=== PATIENT | female | born 1980 | race Caucasian/White ===

== ENCOUNTER 2017-03-01 09:55 | Outpatient (CLI) ==
[2015-09-13 10:05] VITALS: BMI 27.2
[2017-03-01 10:15] LABS: BASOPHILS # (AUTO) 0.1 K/uL (0-0.2); BASOPHILS % (AUTO) 0.7 % (0.0-3.0); EOSINOPHILS # (AUTO) 0.2 K/ul (0.0-0.7); EOSINOPHILS % (AUTO) 2.4 % (0.0-7.0); HEMATOCRIT 42.6 % (37.0-47.0); IMMATURE GRANULOCYTE % (AUTO) 0.4 % (0.0-5.0); LYMPHOCYTES # (AUTO) 2.1 K/uL (0.60-3.4); LYMPHOCYTES % (AUTO) 31.9 (10.0-50.0); MEAN CORPUSCULAR HEMOGLOBIN 29.2 pg (27.0-31.0); MEAN CORPUSCULAR HGB CONC 32.9 (31.8-35.4); MEAN CORPUSCULAR VOLUME 88.8 fl (81.0-99.0); MONOCYTES # (AUTO) 0.4 K/uL (0.4-2.0); NEUTROPHILS # (AUTO) 3.9 K/ul (2.0-6.9); NEUTROPHILS % (AUTO) 58.6; PLATELET COUNT 206 10^3/uL (140-440); WHITE BLOOD COUNT 6.68 K/ul (4.6-10.2)
[2017-03-01 10:33] LABS: ALBUMIN 3.7 g/dL (3.4-5.0); ALBUMIN/GLOBULIN RATIO 1.23; ANION GAP 10.9; BILIRUBIN,TOTAL 0.27 mg/dL (0.00-1.20); BUN/CREATININE RATIO 17.64; CALCIUM 9.2 mg/dL (8.2-10.2); CREATININE 0.85 mg/dL (0.60-1.30); POTASSIUM 3.9 mmol/L (3.5-5.10); TOTAL PROTEIN 6.7 g/dL (6.4-8.2)
== END 2017-03-01 09:56 | disposition home or self-care (01) ==
LOC: LAB 09:55
PROVIDERS: ATTEND Nurse Practitioner Family
DX: R73.09 Other abnormal glucose (principal); J01.90 Acute sinusitis, unspecified
CPT/HCPCS: 36415; 80053; 83036; 85025

== ENCOUNTER 2017-03-15 09:22 | Outpatient (CLI) ==
[2015-09-13 10:05] VITALS: BMI 27.2
--- NOTE | 2017-03-15 10:36 | CT ---
EXAM: CT chest with contrast HISTORY: Lung nodules COMPARISON: 02/13/2015 TECHNIQUE: CT chest performed with intravenous contrast. Coronal and sagittal reformatted images o btained. FINDINGS: Thyroid and thoracic inlet appear normal. Heart normal in size. No pericardial effusion . Aorta normal in caliber. Esophagus appears normal. No mediastinal, hilar, or axillary lymphaden opathy. Patient status post cholecystectomy. There is haziness of the upper abdominal mesentery wit h increased number of normal and top normal sized mesenteric lymph nodes, suggesting mild mesenteric adenitis or colitis. No acute abnormalities of the bones. Central airway patent. No airspace con solidation. No pleural effusion. No pneumothorax. Several stable pulmonary nodules. Stable calci fied right lung nodule measuring 0.8 cm image 31. Stable 3 mm pulmonary nodule right lung image 17. Stable 3 mm pulmonary nodule right lung image 21. Stable 4 mm pulmonary nodule right lung image 2 2. Stable 3 mm pulmonary nodule right lung image 13. Stable 3 mm pulmonary nodule left lung imag e 22. No new pulmonary nodules identified. IMPRESSION: 1. Several stable pulmonary nodules, demonstrating greater than 2-year stability, consistent with b enign etiology. 2. No acute cardiopulmonary process. 3. Findings suggesting mild mesenteric adenitis or panniculitis upper abdomen.
== END 2017-03-15 09:23 | disposition home or self-care (01) ==
LOC: RAD 09:22
PROVIDERS: ATTEND Nurse Practitioner Family
DX: R91.8 Other nonspecific abnormal finding of lung field (principal); Z72.0 Tobacco use

== ENCOUNTER 2018-02-04 12:54 | Emergency (ER) ==
[2018-02-04 12:59] VITALS: BP 97/60; TEMP 98.2; BMI 29.2
--- NOTE | 2018-02-04 13:06 | ED.PDOC ---
General ED Provider: Dr. SUMMER RAMIREZ Chief Complaint: Earache Stated Complaint: Presents for evaluation of earache, sinus congestion, headache and nasal congestion with sneezing. States woke up this am with slight headache/congestion-sneezing. States her throat itches-Denies fever-no cough, + has frontal head pain. States she works at a local [employer] and 2 coworkers had dx flu and were allowed to work Time Seen by Physician: 13:15 Mode of Arrival: Walk-In Information Source: Patient Primary Care Provider: [facility] Nursing and Triage Documentation Reviewed and Agree: Yes Reviewed sepsis parameters & appropriate labs ordered?: Yes System Inflammatory Response Syndrome: Not Applicable Sepsis Protocol: For patient's 13 years and over: Temp is 96.8 and below OR 101 and greater Pulse >90 BPM Resp >20/minute Acutely Altered Mental Status Are patient's symptoms suggestive of a new infection, such as: -Pneumonia -Skin, Soft Tissue -Endocarditis -UTI -Bone, Joint Infection -Implantable Device -Acute Abdominal Infection -Wound Infection -Meningitis -Blood Stream Catheter Infection -Unknown System Inflammatory Response Syndrome: Not Applicable EENT Complaint Exam - Ear Complaint/Exam Symptoms Are: Still present Timing: Constant Initial Severity: Moderate Current Severity: Moderate Character: Reports: Dull pain, Aching pain. Denies: Dizzy, Throbbing pain Aggravating: Reports: None. Denies: Foreign body Alleviating: Reports: None Associated Signs and Symptoms: Reports: Sore throat, URI symptoms Ear Surgical History: None Vesicles to External Pinna: No Vesicles to Tragus: No TMJ Tenderness: None Mastoid Tenderness: None Tragal Tenderness: None External Canal: Normal Material in Canal: Absent: Cerumen, Discharge, Foreign body Tympanic Membrane: Erythema (Lt TM), Bulging Differential Diagnoses: Otitis Media, Other (Influenza) Review of Systems - Review Of Systems Constitutional: Reports: No symptoms Eyes: Reports: No symptoms Ears, Nose, Mouth, Throat: Reports: Throat pain (scratching) Respiratory: Reports: Cough (dry) Cardiac: Reports: No symptoms GI: Reports: No symptoms : Reports: No symptoms Musculoskeletal: Reports: No symptoms Skin: Reports: No symptoms Neurological: Reports: No symptoms Endocrine: Reports: No symptoms Hematologic/Lymphatic: Reports: No symptoms All Other Systems: Reviewed and Negative Past Medical History - Past Medical History Previously Healthy: Yes Endocrine: Reports: None Cardiovascular: Reports: None Respiratory: Reports: None, Other (pulmonary nodule still actively smokes) Hematological: Reports: None Gastrointestinal: Reports: GERD Genitourinary: Reports: None Neuro/Psych: Reports: Anxiety Musculoskeletal: Reports: None Cancer: Reports: None Last Menstrual Period: 3 days ago - Surgical History General Surgical History: Reports: Tubal ligation, Cholecystectomy - Family History Family History: Reports: Unknown - Social History Smoking Status: Current some day smoker Hx Substance Use: No Alcohol Screening: None Physical Exam - Physical Exam Appearance: Well-appearing Ill-appearing: Mild Pain Distress: None Eyes: ADDISON, EOMI, Conjunctiva clear ENT: Ears normal, Nose normal, Oropharynx normal Neck: Supple (Postive, Lymphadenopathy) Respiratory: Airway patent, Breath sounds clear, Breath sounds equal Cardiovascular: RRR, Pulses normal, No rub, No murmur GI/: Soft, Nontender, No masses Musculoskeletal: Normal strength, ROM intact, No edema Skin: Warm, Dry, Normal color (No rash, turgor adequate) Neurological: Sensation intact, Motor intact, Cranial nerves intact, Alert, Oriented Psychiatric: Affect appropriate, Mood appropriate Critical Care Note - Critical Care Note Total Time (mins): 0 Course - Course Vital Signs: Temp Pulse Resp BP Pulse Ox 02/04/18 12:55 98.2 F 75 20 97/60 94 L Departure - Departure Time of Disposition: 14:00 Disposition: HOME SELF-CARE Discharge Problem: Otalgia of left ear, Influenza B Instructions: Influenza (ED), Earache (ED) Condition: Good Pt referred to PMD for follow-up: Yes (2-3 days) IPMP verified?: No Additional Instructions: Remain off work for minimum 48-72 hours until followed up by PCP/ RE EVALUATED AND RELEASED . PATIENT INFLUENZA INSTRUCTIONS The Flu is contagious for one week, and you can infect other people with the flu one day before your symptoms develop, according to the Center for Disease Control and Prevention (CDC). Kids can stay contagious for even longer. To be safe, students, educators and employed adults should stay away from school and work for 24 hours after a fever has subsided, the CDC suggests. Another rule of thumb: You are technically contagious for as long as you have symptoms. From Coughing, Flu germs can spread to others when left to linger on door handles, printer buttons, or other shared tools and furniture. The CDC recommends that workers who have a fever and respiratory symptoms stay at home until 24 hours after their fever ends (100 degrees Fahrenheit [37.8 degrees Celsius] or lower), without the use of medication. Not everyone who has the flu will have a fever. Other symptoms could include a runny nose, body aches , headache, tiredness, diarrhea, or vomiting. Follow up with your primary care physician or midlevel provider if you fail to improve or return to ER if condition worsens (uncontrolled nausea, vomiting, temperature elevation not responding to antipyretics-Tylenol/ibuprofen. Hand Hygiene Wash hands after blowing your nose, coughing, sneezing, or coming into contact with mucus or contaminated objects and surfaces. Apply soap and water: rub soapy hands together for at least 20 seconds, rinse hands with water, and dry completely. Alcohol-based hand rubs: If soap and water are not available, use of an alcohol- based hand rub is a helpful interim measure until hand washing is possible. When using an alcohol-based hand rub, apply liquid to palm of hand, cover all surfaces of the hands with the liquid, and rub hands together until dry. Cough Etiquette Cover coughs and sneezes with a tissue, or cough and sneeze into your upper sleeve(s). Dispose of used tissues in "no-touch" wastebaskets. Prescriptions: Oseltamivir Phosphate [Tamiflu] 75 mg PO Q12HR #10 capsule Promethazine HCl [Phenergan Tab] 25 mg PO Q6H PRN #10 tablet PRN Reason: Nause or vomiting Allergies/Adverse Reactions: Allergies hydrocodone bitartrate [From Lortab] Adverse Reaction (Mild, Verified 02/04/18 13:00) Abdominal Pain states, "hurts stomach" Home Medications: Ambulatory Orders Oseltamivir Phosphate [Tamiflu] 75 mg PO Q12HR #10 capsule 02/04/18 Promethazine HCl [Phenergan Tab] 25 mg PO Q6H PRN #10 tablet 02/04/18
== END 2018-02-04 14:51 | disposition home or self-care (01) ==
LOC: ED 12:54
DX: J10.1 Influenza due to other identified influenza virus with other respiratory manifestations (principal); H92.02 Otalgia, left ear; F17.210 Nicotine dependence, cigarettes, uncomplicated
CPT/HCPCS: 87502; 87651; 99283

== ENCOUNTER 2019-01-17 21:04 | Emergency (ER) ==
[2019-01-17 21:16] VITALS: BP 118/73; TEMP 98.8; BMI 30.9
--- NOTE | 2019-01-17 21:43 | ED.PDOC ---
General ED Provider: Dr. CELINA ROBERTS Chief Complaint: Neck Pain Non-Injury Stated Complaint: Patient is a 38 year old female who comes to the ER with c/o pain to neck, sore throat, Bilatearal ears headache and runny nose. Time Seen by Physician: 21:43 Mode of Arrival: Walk-In Information Source: Patient Exam Limitations: No limitations Nursing and Triage Documentation Reviewed and Agree: Yes Does patient meet sepsis criteria?: No System Inflammatory Response Syndrome: Not Applicable Sepsis Protocol: For patient's 13 years and over: Temp is 96.8 and below OR 101 and greater Pulse >90 BPM Resp >20/minute Acutely Altered Mental Status Are patient's symptoms suggestive of a new infection, such as: -Pneumonia -Skin, Soft Tissue -Endocarditis -UTI -Bone, Joint Infection -Implantable Device -Acute Abdominal Infection -Wound Infection -Meningitis -Blood Stream Catheter Infection -Unknown Review of Systems - Review Of Systems Constitutional: Reports: No symptoms Eyes: Reports: No symptoms Ears, Nose, Mouth, Throat: Reports: Throat pain Respiratory: Reports: No symptoms Cardiac: Reports: No symptoms GI: Reports: No symptoms : Reports: No symptoms Musculoskeletal: Reports: Neck pain Skin: Reports: No symptoms Neurological: Reports: Anxiety Endocrine: Reports: No symptoms Hematologic/Lymphatic: Reports: No symptoms All Other Systems: Reviewed and Negative Past Medical History - Past Medical History Previously Healthy: Yes Endocrine: Reports: None Cardiovascular: Reports: None Respiratory: Reports: Other (pulmonary nodule still actively smokes) Hematological: Reports: None Gastrointestinal: Reports: GERD Genitourinary: Reports: None Neuro/Psych: Reports: Anxiety Musculoskeletal: Reports: None Cancer: Reports: None Last Menstrual Period: LAST WEEK - Surgical History General Surgical History: Reports: Tubal ligation, Cholecystectomy - Family History Family History: Reports: Unknown - Social History Smoking Status: Current every day smoker, Heavy tobacco smoker Hx Substance Use: No Alcohol Screening: None - Immunizations Tetanus Shot up to Date: Yes Physical Exam - Physical Exam Appearance: Well-appearing Ill-appearing: None Pain Distress: Mild Eyes: ADDISON, EOMI, Conjunctiva clear ENT: Ears normal, Nose normal, Oropharynx normal, Erythema Neck: Supple (with some superficial lymph nodes palpable.) Respiratory: Airway patent, Breath sounds clear, Breath sounds equal, Respirations nonlabored Cardiovascular: RRR, Pulses normal, No rub, No murmur Musculoskeletal: Normal strength, ROM intact, No edema, No calf tenderness Skin: Warm, Dry, Normal color Neurological: Alert Psychiatric: Anxious Re-Evaluation - Re-Evaluation Time of Re-Evaluation: 22:20 Status: Improved Critical Care Note - Critical Care Note Total Time (mins): 0 Course - Course Orders, Labs, Meds: Orders Category Date Time Status FLU A/B MOLECULAR Stat LAB 01/17/19 21:30 Ordered MOLECULAR GROUP A STREP Stat LAB 01/17/19 21:30 Ordered Vital Signs: Temp Pulse Resp BP Pulse Ox 01/17/19 21:04 98.8 F 77 18 118/73 97 Departure - Departure Time of Disposition: 22:25 Disposition: HOME SELF-CARE Discharge Problem: Viral pharyngitis, Neck pain Instructions: Pharyngitis (ED), Neck Pain (ED) Condition: Stable Pt referred to PMD for follow-up: Yes IPMP verified?: No Additional Instructions: Follow up with PCP in 1-3 days Take medications as prescribed Prescriptions: Ibuprofen [Motrin] 600 mg PO Q6H PRN #20 tablet PRN Reason: Analgesia Allergies/Adverse Reactions: Allergies hydrocodone bitartrate [From Lortab] Adverse Reaction (Mild, Verified 01/17/19 21:12) Abdominal Pain states, "hurts stomach" Home Medications: Ambulatory Orders Clonazepam [Klonopin] 0.5 mg PO QID PRN 01/17/19 Ibuprofen [Motrin] 600 mg PO Q6H PRN #20 tablet 01/17/19 Disposition Discussed With: Patient, Family
[2019-01-17] MEDS ORDERED: MOTRIN PO STA (21:47)
== END 2019-01-17 22:56 | disposition home or self-care (01) ==
LOC: ED 21:04
DX: M54.2 Cervicalgia (principal); J02.9 Acute pharyngitis, unspecified; F17.210 Nicotine dependence, cigarettes, uncomplicated
CPT/HCPCS: 87502; 87651; 99282